=== PATIENT | female | born 1965 | race Caucasian/White ===

== ENCOUNTER 2023-05-15 20:58 | Observation (INO) | payer BC ==
[2023-05-15 22:25] LABS: Magnesium 1.7 mg/dL (1.6-2.6)
[2023-05-15 22:29] LABS: Troponin I 0.014 ng/mL (< 0.028)
[2023-05-15] MEDS ORDERED: Morphine 2 MG/ML VIAL ONE (23:46)
[2023-05-16] MEDS ORDERED: Ondansetron PF 4 MG/2 ML Vial IVP PRN (00:58)
[2023-05-16] MEDS ORDERED: Acetaminophen 325 MG TAB PO PRN (00:58)
[2023-05-16 01:19] LABS: Troponin I 0.014 ng/mL (< 0.028)
[2023-05-16] MEDS ORDERED: Ketorolac Tromethamine 30 MG/ML VIAL IVP SCH (03:00)
[2023-05-16 03:49] VITALS: BMI 25.7
[2023-05-16 04:37] LABS: #Eosinphils 0.1 thou/uL (0.0-0.7); #Monocytes 0.5 thou/uL (0.11-0.59); #Neutrophils 1.5 thou/uL (1.40-6.50); %Basophils 0.5 % (0.0-1.0); %Eosinophils 2.9 % (0.0-10.0); %Lymphocytes 49.9 % (21.0-51.0); %Monocytes 10.7 % (0.0-10.0); %Neutrophils 35.8 % (42.0-75.0); Hematocrit 36.4 % (36.0-47.0); Hemoglobin 11.7 g/dL (12.0-16.0); Mean Corpuscular HGB CONC 32.1 g/dL (32.0-36.0); Mean Corpuscular Hemoglobin 31.2 pg (27.0-31.0); Mean Corpuscular Volume 97.1 fl (78.0-98.0); Mean Platelet Volume 10.9 fL (7.4-10.4); Platelet Count 144 10x3/uL (130-400); RBC Distribution Width 11.7 % (11.5-14.5); Red Blood Cell (RBC) Count 3.75 mill/uL (4.20-5.40); White Blood Cell (WBC) Count 4.2 10x3/uL (4.8-10.8)
[2023-05-16 04:51] LABS: Hemoglobin A1c 5.2 % (4.0-6.0)
[2023-05-16 05:08] LABS: Anion Gap 13 mmol/L (10-20); BUN (Urea Nitrogen) 8 mg/dL (9.8-20.1); Calc. Creatinine Clearance 120 mL/min (70-130); Calcium 8.4 mg/dL (7.8-10.44); Carbon Dioxide 21 mmol/L (22-29); Cardiac Risk 2.9 (Less than 4.5); Chloride 111 mmol/L (98-107); Cholesterol 110 mg/dl (< 200 Desired); Estimated GFR 107; Glucose 91 mg/dL (70-105); HDL Cholesterol 38 mg/dL (>60 Neg Risk); LDL Cholesterol, Calculated 60 mg/dL; Potassium 3.8 mmol/L (3.5-5.1); Sodium 141 mmol/L (136-145); Triglycerides 61 mg/dL (Less than 150)
[2023-05-16] MEDS: Levothyroxine Sodium 125 MCG TAB PO SCH (06:10)
[2023-05-16] MEDS: Ketorolac Tromethamine 30 MG/ML VIAL IVP PRN ×2 (10:00→16:30)
[2023-05-16] MEDS: Folic Acid 1 MG TAB PO SCH ×2 (10:38→10:55)
[2023-05-16] MEDS: Magnesium 2 GM/50 ML(in water) 2 GM in Premix 1 BAG IVPB SCH ×2 (10:53→12:13)
[2023-05-16] MEDS: traMADol HCl 50 MG TAB PO PRN ×3 (10:54→19:29)
[2023-05-16] MEDS: Morphine 2 MG/ML VIAL SLOW IVP PRN ×2 (16:30→21:13)
[2023-05-16] MEDS ORDERED: Atorvastatin Calcium 40 MG TAB PO SCH ×2 (21:00)
[2023-05-17] MEDS: Ketorolac Tromethamine 30 MG/ML VIAL IVP PRN ×2 (01:30→08:25)
[2023-05-17 04:48] LABS: #Eosinphils 0.2 thou/uL (0.0-0.7); #Monocytes 0.5 thou/uL (0.11-0.59); #Neutrophils 1.9 thou/uL (1.40-6.50); %Basophils 0.4 % (0.0-1.0); %Eosinophils 3.3 % (0.0-10.0); %Lymphocytes 45.9 % (21.0-51.0); %Monocytes 10.3 % (0.0-10.0); %Neutrophils 39.9 % (42.0-75.0); Hematocrit 35.9 % (36.0-47.0); Hemoglobin 11.9 g/dL (12.0-16.0); Mean Corpuscular HGB CONC 33.1 g/dL (32.0-36.0); Mean Corpuscular Hemoglobin 31.8 pg (27.0-31.0); Mean Platelet Volume 10.7 fL (7.4-10.4); Platelet Count 145 10x3/uL (130-400); RBC Distribution Width 11.7 % (11.5-14.5); Red Blood Cell (RBC) Count 3.74 mill/uL (4.20-5.40); White Blood Cell (WBC) Count 4.9 10x3/uL (4.8-10.8)
[2023-05-17] MEDS: Levothyroxine Sodium 125 MCG TAB PO SCH (05:09)
[2023-05-17 05:11] LABS: Anion Gap 12 mmol/L (10-20); BUN (Urea Nitrogen) 9 mg/dL (9.8-20.1); Calc. Creatinine Clearance 113 mL/min (70-130); Calcium 8.4 mg/dL (7.8-10.44); Carbon Dioxide 24 mmol/L (22-29); Chloride 107 mmol/L (98-107); Estimated GFR 106; Glucose 89 mg/dL (70-105); Sodium 139 mmol/L (136-145)
[2023-05-17] MEDS: Folic Acid 1 MG TAB PO SCH (08:26)
[2023-05-17] MEDS ORDERED: ADENOSINE 60 MG/20 ML SDV ONE (08:45)
[2023-05-17] MEDS ORDERED: Levothyroxine Sodium 125 MCG TAB PO SCH (09:00)
[2023-05-17 11:30] VITALS: BP 140/63; TEMP 97.8
== END 2023-05-17 13:49 | disposition home or self-care (01) ==
LOC: ERS 20:58 → 2NO 23:42
PROVIDERS: ADMIT Internal Medicine; ATTEND Hospitalist
DX: R07.9 Chest pain, unspecified (principal); E78.5 Hyperlipidemia, unspecified; E03.9 Hypothyroidism, unspecified; K21.9 Gastro-esophageal reflux disease without esophagitis; M06.9 Rheumatoid arthritis, unspecified; Z88.0 Allergy status to penicillin; Z98.84 Bariatric surgery status; Z98.890 Other specified postprocedural states; Z79.899 Other long term (current) drug therapy; Z87.891 Personal history of nicotine dependence
CPT/HCPCS: 36415; 78452; 80048; 80061; 83036; 83735; 84484; 85025; 93005; 93017; 94760; 96374; 96375; 96376; A9502; G0378; J0153; J1885; J2272; J3475